=== PATIENT | female | born 1935 | race Two or more races ===

== ENCOUNTER → 2018-10-26 | Outpatient (CLI) | payer MEDICARE ==
--- NOTE | 2018-10-26 15:40 | RADIOLOGY REPORT (SQ) ---
EXAM DESCRIPTION: BARIUM SWALLOW ESOPHAGUS COMPLETED DATE/TIME: 10/26/2018 9:21 am REASON FOR STUDY: DYSPHAGIA (R13.10) R13.10 DYSPHAGIA, UNSPECIFIED COMPARISON: CT cervical spine and CT thoracic spine 05/05/2015 TECHNIQUE: Under fluoroscopic guidance, patient ingested effervescent granules followed by thick and thin barium. Fluoroscopic spot images and routine radiographic images acquired and stored on PACS. 12 MM BARIUM TABLET GIVEN: Yes No significant delay in passage. LIMITATIONS: None. FLUOROSCOPY TIME: FLUORO TIME: 2 minutes 35 seconds 15 series of images saved to PACS. FINDINGS: NEUROMUSCULAR COORDINATION OF SWALLOW: Normal. No aspiration. ESOPHAGEAL MOTILITY: Normal peristalsis. No esophageal spasm. Occasional tertiary contractions of th e esophagus ESOPHAGEAL MUCOSA: Normal mucosa without masses or ulceration. GASTRO-ESOPHAGEAL JUNCTION: Small sliding hiatal hernia. No Schatzki's ring or distal esophageal str icture. 12 mm barium tablet passed through the hernia into the stomach without difficulty. There is unprovoked gastroesophageal reflux to the cervical esophagus NON-GI TRACT STRUCTURES: Convex rightward thoracic curvature. OTHER: Limited view of the stomach was obtained. There is normal gastric emptying. No gastric outle t obstruction. 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 Unprovoked gastroesophageal reflux to the cervical esophagus. COMMENT: Quality ID [id number]: Final reports for procedures using fluoroscopy that document radiation exp osure indices, or exposure time and number of fluorographic images (if radiation exposure indices are not available) TECHNICAL DOCUMENTATION: JOB ID: [id number] [employer]- All Rights Reserved Reading location - IP/workstation name: [email or web address]
== END ==
LOC: RAD 07:57
PROVIDERS: ATTEND Family Medicine
DX: K21.9 Gastro-esophageal reflux disease without esophagitis (principal); K44.9 Diaphragmatic hernia without obstruction or gangrene; R13.10 Dysphagia, unspecified
CPT/HCPCS: 74220